=== PATIENT | female | born 1945 | race Caucasian/White ===

== ENCOUNTER 2017-01-06 11:52 | Day surgery (SDC) | payer MEDICARE ==
[~2017-01-06] VITALS: Ht 154.9 cm; Wt 65.8 kg
[~2017-01-06 11:52] MED LIST: 0.9% Sodium Chloride 1,000 ML IV SCH; ASPI-973 PO; HYDR12.5 PO; LISI10TA PO; MULT1CAP33 PO; OMEP20CA11 PO; OXYC1TAB24 PO; SIMV40TA5 PO; Sodium Chloride LOK Flush 10 mL Syringe IV PRN; fentaNYL-PF 50 mCg/mL 2 mL Inj IVPUSH PRN
[2017-01-06 12:17] VITALS: BP 177/79; PULSE 77; RESP 14; O2SAT 99
[2017-01-06 13:06] VITALS: BP 141/71; PULSE 68; RESP 12; O2SAT 98
[2017-01-06 13:17] VITALS: BP 120/68; PULSE 68; RESP 12; O2SAT 97
--- NOTE | 2017-01-06 19:52 | ENDO ---
[address] [address] ENDOSCOPY PROCEDURE PATIENT: BRAIN DORSEY : 1945 MR#: [id number] ADMIT: 01/06/2017 JOB ID: [id number] PRIMARY PROVIDER: Brandie Anton MD. PROCEDURE: Colonoscopy with hot snare polypectomy. INDICATIONS: A 71-year-old female, personal history of colon cancer, status post right hemicolectomy. Returning for surveillance. EQUIPMENT: PCAditive-H180AL. SEDATION: 7 mg Versed, 125 mcg fentanyl. COMPLICATIONS: None identified. BOWEL PREPARATION: Fair. PROCEDURE INFORMATION: After the risks and benefits were explained, written and verbal informed consent was obtained, the patient was brought into the endoscopy suite and placed into the left lateral decubitus position. Sedation was achieved as above, digital rectal examination accomplished. No significant pathology appreciated apart from some mild internal hemorrhoids. The scope was introduced into the rectum and advanced to the right hemicolectomy anastomosis. The scope was slowly withdrawn to carefully examine the mucosa for any defects or lesions. Multiple direct views were made through the dentate line for exclusion of pathology. The colon was decompressed, the scope removed from the patient who tolerated the procedure well. FINDINGS: There was some diverticulosis in the left colon. In the rectosigmoid region, there was an approximately 6-7 mm sessile polyp removed with hot snare. The right hemicolectomy colectomy anastomosis appeared to be within normal limits. I did not see any other significant pathology throughout. ENDOSCOPIC DIAGNOSES: 1. Colon polyp. 2. Diverticulosis. 3. Normal-appearing right hemicolectomy anastomosis. 4. Hemorrhoids. RECOMMENDATIONS: 1. Await histopathology. 2. Repeat colonoscopy in three years considering the presence of a polyp today and the fair prep.
--- NOTE | 2017-01-07 10:43 | PATH ---
SURGICAL PATHOLOGY Attending Physician:Chucky Alfredo CASE STATUS: Signed Out PATIENT NAME: BRAIN DORSEY PID: [id number] : 1945 DATE COLLECTED:01/06/2017 21:43 SPECIMEN: Colon, Polyp CLINICAL HISTORY: PERSONAL HISTORY OF COLON CANCER 1). RECTAL SIGMOID COLON POLYP X1 FINAL DIAGNOSIS: 1.RECTOSIGMOID COLON POLYP: HYPERPLASTIC POLYP. ICD10 K63.5 GROSS DESCRIPTION: The specimen is received in one formalin filled container labeled with the patient's name, sublabeled "rectal sigmoid polyp" and consists of a 0.3 x 0.2 x 0.2 CM portion of tissue which is entirely submitted in one cassette. 01/06/2017 DAC MICRO DESCRIPTION: See diagnosis. ICD-9 CODES: CPT CODES: 1: 47165 Electronically Signed Out Richard Narvaez MD [facility] [address], [place] [address] Technical component performed at [facility], [facility] [address], [place], [address]
== END 2017-01-06 23:59 | disposition home or self-care (01) ==
LOC: END 11:52
PROVIDERS: ATTEND Internal Medicine Gastroenterology
DX: Z12.11 Encounter for screening for malignant neoplasm of colon (principal); Z85.038 Personal history of other malignant neoplasm of large intestine; K63.5 Polyp of colon; K63.89 Other specified diseases of intestine; K64.8 Other hemorrhoids; K57.30 Diverticulosis of large intestine without perforation or abscess without bleeding; Z79.82 Long term (current) use of aspirin
CPT/HCPCS: 45385; 99153; G0500; J2250; J3010; J7030